=== PATIENT | male | born 1985 | race African-American/Black ===

== ENCOUNTER 2017-08-06 02:00 | Emergency (ER) | payer SELFPAY ==
[2017-08-06] MEDS ORDERED: CEPHALEXIN MONOHYDRATE 500 MG CAP PO ONE (04:05)
--- NOTE | 2017-08-06 06:14 | PD ---
HPI Chief Complaint: sore throat Time Seen by Provider: 06:07 Travel History International Travel<30 days: No Contact w/Intl Traveler<30days: No Traveled to known affect area: No History of Present Illness HPI 32-year-old black male presents to emergency department with a 2 day history of sore throat, subjective fever and general malaise. He states that he had called in sick to his day job on Monday. He needs a note to return to work or he will be fired. Patient states that symptoms are moderate. Worse with swallowing. No alleviating factors. He denies any nausea vomiting. No abdominal pain or diarrhea. [facility] Past Medical History Medical History: Denies Significant Hx Tetanus Vaccination: < 5 Years Past Surgical History Surgical History: No Previous Surgery Social History Alcohol Use: No Tobacco Use: No Review of Systems General / Constitutional: Positive: Fever, Chills Eyes: No: Visual changes HENT: Positive: Sore Throat, No: Headaches, Earache Cardiovascular: No: Chest Pain or Discomfort Respiratory: No: Shortness of Breath Gastrointestinal: No: Abdominal Pain Genitourinary: No: Dysuria Musculoskeletal: No: Pain Skin: No Rash Neurologic: No: Weakness Psychiatric: No: Depression Endocrine: No: Polydipsia Hematologic/Lymphatic: No: Easy Bruising Physical Exam Narrative GENERAL: Well-developed, well-nourished in no acute distress. Nontoxic appearing. HEAD: Normocephalic, atraumatic. EYES: Pupils equal round and reactive. Extraocular motions intact. No scleral icterus. No injection or drainage. ENT: TMs clear without erythema. The external auditory canals clear. Nose: clear . Posterior pharynx is mildly erythematous and moist. No tonsillar edema or exudate. Uvula midline. Airway patent. NECK: Trachea midline.Supple, nontender, moves head freely. No central bony tenderness or spasm. CARDIOVASCULAR: Regular rate and rhythm without murmurs, gallops, or rubs. RESPIRATORY: Clear to auscultation. Breath sounds equal bilaterally. No wheezes , rales, or rhonchi. GASTROINTESTINAL: Abdomen soft, non-tender, nondistended. No hepato-splenomegaly , or palpable masses. No guarding. EXTREMITIES: No clubbing, cyanosis, or edema. No joint tenderness, effusion, or edema noted. BACK: Nontender without deformity or crepitance. No flank tenderness. [facility] Medical Decision Making Medical Screen Exam Complete: Yes Emergency Medical Condition: Yes Medical Record Reviewed: Yes Differential Diagnosis MDM: High Differential diagnoses: Strep throat, viral pharyngitis, mono, peritonsillar abscess, retropharyngeal abscess, Pérez's angina Narrative Course Patient given amoxicillin 500 mg by mouth. This is acute pharyngitis Diagnosis Primary Impression: Acute pharyngitis Qualified Codes: J02.9 - Acute pharyngitis, unspecified Additional Instructions: Rest. Force fluids. Saltwater gargles. Tylenol and Advil. Chloraseptic [place] Cepastat lozenge. Amoxicillin. Follow-up with a primary care doctor in one week. Return to the ER if any problems. Med/Other Pt SpecificInfo: Prescription(s) given Disposition: 01 DISCHARGE HOME Condition: Nahum Garcia Aug 06, 2017 06:14
== END 2017-08-06 06:26 | disposition home or self-care (01) ==
LOC: NED 02:00 → NEPD 06:26
DX: J02.9 Acute pharyngitis, unspecified (principal); R53.81 Other malaise
CPT/HCPCS: 99283

== ENCOUNTER 2017-10-24 15:04 | Emergency (ER) | payer SELFPAY ==
[~2017-10-24] VITALS: Ht 177.8 cm; Wt 133.6 kg
[2017-10-24 15:05] VITALS: BP 179/91; PULSE 63; RESP 16; TEMP 98.5; O2SAT 100
[2017-10-24] MEDS ORDERED: KETOROLAC TROMETHAMINE 60 MG/2 ML (IM) VIAL IM ONE (17:00)
[2017-10-24] MEDS ORDERED: ORPHENADRINE INJ 60 MG/2 ML AMP IM ONE (17:00)
[2017-10-24] MEDS ORDERED: DICL75TA PO (17:22)
[2017-10-24] MEDS ORDERED: ROBA500T PO (17:22)
--- NOTE | 2017-10-24 17:27 | PD ---
HPI Chief Complaint: Back/ Neck Pain or Injury Time Seen by Provider: 16:51 Travel History International Travel<30 days: No Contact w/Intl Traveler<30days: No Traveled to known affect area: No History of Present Illness HPI 32-year-old male that presents to the ED for evaluation of lower back pain that gets worse with bending. Per patient injury started on after he did heavy lifting helping move some furniture. Per patient the pain goes more significant on Monday and Monday. He has continued to work at his normal job where he does do a lot of heavy lifting and bending and she believes this is making it worse. Per patient the pain more severe today which is what prompted evaluation. Per patient he had to call out of work to come here. He denies any falls or injuries other than the heavy lifting that he did on . He states having some back problems in the past. No allergies to medication. No recent surgeries on the back. Has been taking OTC meds with minimal relief. Per patient pain is 8 out of 10. Gets worse with bending and movement. Has no allergies to medication. Denies any chest or shortness of breath. No head injury. No blurry vision or double vision. No bowel movement or urinary issues. No saddle anesthesia like symptoms. PFSH Social History Alcohol Use: No Tobacco Use: No Allergies-Medications (Allergen,Severity, Reaction): Coded Allergies: No Known Allergies (Unverified , 08/06/17) Review of Systems Except as stated in HPI: all other systems reviewed are Neg Physical Exam Narrative GENERAL: SKIN: Warm and dry. HEAD: Atraumatic. Normocephalic. EYES: Pupils equal and round. No scleral icterus. No injection or drainage. ENT: No nasal bleeding or discharge. Mucous membranes pink and moist. Tongue is midline. No uvula deviation. NECK: Trachea midline. No JVD. CARDIOVASCULAR: Regular rate and rhythm. RESPIRATORY: No accessory muscle use. Clear to auscultation. Breath sounds equal bilaterally. GASTROINTESTINAL: Abdomen soft, non-tender, nondistended. Hepatic and splenic margins not palpable. MUSCULOSKELETAL: Extremities without clubbing, cyanosis, or edema. No obvious deformities. Full range of motion of the upper and lower extremities bilaterally. Patient does have reproducible pain on the musculature on the left and right lumbar area. Some pain on the lumbar spine but no obvious spinal deformity. Straight leg test negative bilaterally. Pain with flexion of the lumbar spine. No obvious thoracic or cervical spine tenderness to palpation. 2+ pulses bilaterally. Neurovascular intact. NEUROLOGICAL: Awake and alert. No obvious cranial nerve deficits. Motor grossly within normal limits. Five out of 5 muscle strength in the arms and legs. Normal speech. PSYCHIATRIC: Appropriate mood and affect; insight and judgment normal. Data Data Last Documented VS Vital Signs Date Time Temp Pulse Resp B/P (MAP) Pulse Ox O2 Delivery O2 Flow Rate FiO2 10/24/17 15:05 98.5 63 16 179/91 (120) 100 Room Air Orders Orders Spine, Lumbar Comp W/Obliq (10/24/17 ) Ketorolac Inj (Toradol Inj) (10/24/17 17:00) Orphenadrine Inj (Norflex Inj) (10/24/17 17:00) MDM Medical Decision Making Medical Screen Exam Complete: Yes Emergency Medical Condition: Yes Medical Record Reviewed: Yes Interpretation(s) X-ray the lumbar spine show chronic changes but no sign of acute disease. Differential Diagnosis Herniated disc versus muscle strain versus muscle spasm versus sciatica Narrative Course 32-year-old male that presents to the ED for evaluation of lower back pain. Patient was properly examined and was found to have signs and symptoms consistent appears to be muscle strain of the lower back. X-ray was ordered for his any bony injury secondary to his heavy lifting and continues pain. X- ray was negative for acute disease. Patient was reassured. Patient will be given shot of Toradol and Norflex. Given prescription for diclofenac sodium and Robaxin to use as needed. Given note for work. See ED worsening symptoms. Ice or warm compresses. Follow with PCP. Diagnosis Primary Impression: Lumbar strain Qualified Codes: S39.012A - Strain of muscle, fascia and tendon of lower back , initial encounter Patient Instructions: General Instructions Departure Forms: Tests/Procedures, Work Release Special Instructions: Please outpatient to do light duty if possible. Patient suffered lumbar strain to requires rest. He is not to do any heavy lifting more than 5 pounds, bending or pushing until better. Preferably until 11/01/17. Additional Instructions: Take medications as prescribed. Follow-up with PCP. See ED for any worsening symptoms. Do not drink or drive while taking pain medication. Apply ice or heat as needed for pain Med/Other Pt SpecificInfo: Prescription(s) given Scripts Methocarbamol (Robaxin) 500 Mg Tab 500 MG PO QID for Muscle Spasm, #14 TAB 0 Refills Prov: Deena Santillan DO 10/24/[address] (Diclofenac Sodium DR) 75 Mg Tabdr 75 MG PO BID Y for PAIN SCALE 1 TO 10, #20 TAB 0 Refills Prov: Deena Santillan DO 10/24/17 Disposition: 01 DISCHARGE HOME Condition: Stable Darius Ramirez Oct 24, 2017 17:27
--- NOTE | 2017-10-24 18:05 | RADRPT ---
EXAM DATE/TIME: 10/24/2017 17:17 [place] COMPARISON: No previous studies available for comparison. INDICATIONS : Lumbar spine pain. MEDICAL HISTORY : None. SURGICAL HISTORY : None. ENCOUNTER: Initial ACUITY: 4 - 6 days PAIN SCORE: 9/10 LOCATION: Bilateral lumbar spine FINDINGS: There are five non-rib bearing vertebral bodies. The vertebral bodies are in normal alignment withou t evidence of subluxation or scoliosis. The disc spaces are maintained. The posterior elements are intact without evidence of spondylolysis. The pedicles are intact. Bony mineralization is normal. No fracture is identified. CONCLUSION: No acute disease. Diego Ritchie MD on October 24, 2017 at 18:02 Board Certified Radiologist. This report was verified electronically.
== END 2017-10-24 18:05 | disposition home or self-care (01) ==
LOC: NEPK 15:04
DX: S39.012A Strain of muscle, fascia and tendon of lower back, initial encounter (principal); X50.9XXA Other and unspecified overexertion or strenuous movements or postures, initial encounter; Y93.89 Activity, other specified
CPT/HCPCS: 72110; 96372; 99283; J1885; J2360

== ENCOUNTER 2018-02-13 09:48 | Emergency (ER) | payer SELFPAY ==
[~2018-02-13] VITALS: Ht 180.3 cm; Wt 131.0 kg
[~2018-02-13 09:48] MED LIST: DICL75TA PO; ROBA500T PO
[2018-02-13 09:51] VITALS: BP 154/80; PULSE 65; RESP 16; TEMP 98; O2SAT 98
--- NOTE | 2018-02-13 10:13 | PD ---
HPI Chief Complaint: Abdominal Pain Time Seen by Provider: 10:12 Travel History International Travel<30 days: No Contact w/Intl Traveler<30days: No Traveled to known affect area: No History of Present Illness HPI 32-year-old male came to the emergency room with history of epigastric pain, nausea, vomiting and diarrhea for past 3 days. Patient says it is not getting better and hence he is here. He is not had these kind of symptoms in the past. Pain is localized in the epigastric area without any radiation. No aggravating or relieving factors identified. Patient says he usually does not drink alcohol but about 3 days ago he did drink some wine coolers after which the pain started. No blood in the vomit. Currently he is in pain and some nausea. Vital signs otherwise stable. Patient has not taken any medications at home to relieve his symptoms. He otherwise claims to be a healthy person. Patient says he occasionally takes a medication for his joint pain that was prescribed from the emergency room in the past. It happens to be diclofenac. [facility] Past Medical History Narrative Medical List of his past medical, surgical, social and family history reviewed from the nursing note. Hypertension: Yes Past Surgical History Other Surgery: Yes (L NERVE REMOVAL FROM EYELID) Social History Alcohol Use: No Tobacco Use: No Substance Use: Yes Allergies-Medications (Allergen,Severity, Reaction): Coded Allergies: No Known Allergies (Unverified , 02/13/18) Comments No known drug allergies. Reported Meds & Prescriptions Reported Meds & Active Scripts Active Zofran Odt (Ondansetron Odt) 4 Mg Tab 4 Mg SL Q6HR PRN Protonix (Pantoprazole Sodium) 40 Mg Tab 40 Mg PO DAILY Robaxin (Methocarbamol) 500 Mg Tab 500 Mg PO QID Diclofenac Sodium DR (Diclofenac Sodium) 75 Mg Tabdr 75 Mg PO BID PRN Narrative Medication List of his home medications reviewed from the nursing note. Review of Systems Except as stated in HPI: all other systems reviewed are Neg Gastrointestinal: Positive: Nausea, Vomiting, Diarrhea, Abdominal Pain Physical Exam Narrative GENERAL: Awake, alert, obese, moderate distress SKIN: Focused skin assessment warm/dry. HEAD: Atraumatic. Normocephalic. EYES: Pupils equal and round. No scleral icterus. No injection or drainage. ENT: No nasal bleeding or discharge. Mucous membranes pink and moist. NECK: Trachea midline. No JVD. CARDIOVASCULAR: Regular rate and rhythm. No murmur appreciated. RESPIRATORY: No accessory muscle use. Clear to auscultation. Breath sounds equal bilaterally. GASTROINTESTINAL: Abdomen soft, epigastric tenderness, nondistended. Hepatic and splenic margins not palpable. MUSCULOSKELETAL: No obvious deformities. No clubbing. No cyanosis. No edema. NEUROLOGICAL: Awake and alert. No obvious cranial nerve deficits. Motor grossly within normal limits. Normal speech. PSYCHIATRIC: Appropriate mood and affect; insight and judgment normal. Data Data Last Documented VS Vital Signs Date Time Temp Pulse Resp B/P (MAP) Pulse Ox O2 Delivery O2 Flow Rate FiO2 02/13/18 10:35 98 Room Air 02/13/18 09:51 98.0 65 16 154/80 (104) Orders Orders Complete Blood Count With Diff (02/13/18 10:16) Comprehensive Metabolic Panel (02/13/18 10:16) Lactic Acid (02/13/18 10:16) Iv Access Insert/Monitor (02/13/18 10:16) Ecg Monitoring (02/13/18 10:16) Oximetry (02/13/18 10:16) Pantoprazole Inj (Protonix Inj) (02/13/18 10:30) Sodium Chloride 0.9% Flush (Ns Flush) (02/13/18 10:30) Sodium Chlor 0.9% 1000 Ml Inj (Ns 1000 M (02/13/18 10:30) Ed Discharge Order (02/13/18 11:11) Labs Laboratory Tests Test 02/13/18 10:30 White Blood Count 6.8 TH/MM3 Red Blood Count 5.08 MIL/MM3 Hemoglobin 14.6 GM/DL Hematocrit 43.0 % Mean Corpuscular Volume 84.5 FL Mean Corpuscular Hemoglobin 28.7 PG Mean Corpuscular Hemoglobin Concent 34.0 % Red Cell Distribution Width 13.1 % Platelet Count 162 TH/MM3 Mean Platelet Volume 9.6 FL Neutrophils (%) (Auto) 68.5 % Lymphocytes (%) (Auto) 21.3 % Monocytes (%) (Auto) 6.5 % Eosinophils (%) (Auto) 2.7 % Basophils (%) (Auto) 1.0 % Neutrophils # (Auto) 4.6 TH/MM3 Lymphocytes # (Auto) 1.4 TH/MM3 Monocytes # (Auto) 0.4 TH/MM3 Eosinophils # (Auto) 0.2 TH/MM3 Basophils # (Auto) 0.1 TH/MM3 CBC Comment DIFF FINAL Differential Comment Blood Urea Nitrogen 10 MG/DL Creatinine 0.98 MG/DL Random Glucose 86 MG/DL Total Protein 6.9 GM/DL Albumin 3.3 GM/DL Calcium Level 8.2 MG/DL Alkaline Phosphatase 56 U/L Aspartate Amino Transf (AST/SGOT) 16 U/L Alanine Aminotransferase (ALT/SGPT) 21 U/L Total Bilirubin 0.5 MG/DL Sodium Level 140 MEQ/L Potassium Level 3.5 MEQ/L Chloride Level 106 MEQ/L Carbon Dioxide Level 27.2 MEQ/L Anion Gap 7 MEQ/L Estimat Glomerular Filtration Rate 109 ML/MIN Lactic Acid Level 0.8 mmol/L [facility] Medical Decision Making Medical Screen Exam Complete: Yes Emergency Medical Condition: Yes Medical Record Reviewed: Yes Differential Diagnosis Acute pancreatitis, acute gastritis Narrative Course 11:05 AM patient is getting IV fluid bolus and IV Protonix. Awaiting for blood test results. CBCs back which is within normal limit but chemistry and lipase is pending. 11:11 AM chemistry and lipase is back which is within normal limits. I will discharge him home Procedures EKG Prior to Arrival: No Diagnosis Primary Impression: Acute gastritis Qualified Codes: K29.00 - Acute gastritis without bleeding Referrals: [facility] Additional Instructions: Do not drink alcohol. Do not eat spicy food or citrus food like lemonade, [place] , orange juice, tomatoes or strawberries since they will increase the acid content in your stomach and make his symptoms worse. Take the medication as per the prescription direction. Do not take the joint pain medication until your symptoms subside. Return to the ER if the condition worsens any other new concerns. Drink lots of fluid to stay hydrated. Med/Other Pt SpecificInfo: Prescription(s) given Scripts Ondansetron Odt (Zofran Odt) 4 Mg Tab 4 MG SL Q6HR Y for Nausea/Vomiting, #15 TAB 0 Refills Prov: Moris Golden MD 02/13/18 Pantoprazole (Protonix) 40 Mg Tab 40 MG PO DAILY for Reflux, #30 TAB 0 Refills Prov: Moris Golden MD 02/13/18 Disposition: 01 DISCHARGE HOME Condition: Stable [place],Shravanti R. MD February 13, 2018 10:13
[2018-02-13] MEDS ORDERED: PANTOPRAZOLE SODIUM 40 MG VIAL IVP ONE (10:30)
[2018-02-13] MEDS ORDERED: SODIUM CHLOR 0.9% 1000 ML INJ 1,000 ML IV ONE (10:30)
[2018-02-13] MEDS ORDERED: SODIUM CHLORIDE 0.9% FLUSH 10 ML FLUSH IV FLUSH PRN (10:30)
[2018-02-13 10:35] VITALS: O2SAT 98
[2018-02-13 10:49] LABS: AUTOMATED NEUTROPHIL # 4.6 TH/MM3 (1.8-7.7); BASOPHIL # 0.1 TH/MM3 (0-0.2); EOSINOPHIL # 0.2 TH/MM3 (0-0.4); EOSINOPHIL % 2.7 % (0.0-4.0); HEMOGLOBIN 14.6 GM/DL (13.0-17.0); LYMPH % 21.3 % (9.0-44.0); LYMPHOCYTE # 1.4 TH/MM3 (1.0-4.8); MEAN CELL VOLUME 84.5 FL (80.0-100.0); MEAN CORPUSCULAR HEMOGLOBIN 28.7 PG (27.0-34.0); MEAN PLATELET VOLUME 9.6 FL (7.0-11.0); MONO % 6.5 % (0.0-8.0); MONOCYTE # 0.4 TH/MM3 (0-0.9); NEUT % 68.5 % (16.0-70.0); PLATELET COUNT 162 TH/MM3 (150-450); RED BLOOD COUNT 5.08 MIL/MM3 (4.50-5.90); RED CELL DISTRIBUTION WIDTH 13.1 % (11.6-17.2); WHITE BLOOD COUNT 6.8 TH/MM3 (4.0-11.0)
[2018-02-13 11:07] LABS: ALBUMIN 3.3 GM/DL (3.4-5.0); ALT (GPT) 21 U/L (12-78); AST (GOT) 16 U/L (15-37); BICARBONATE 27.2 MEQ/L (21.0-32.0); BLOOD UREA NITROGEN 10 MG/DL (7-18); CALCIUM 8.2 MG/DL (8.5-10.1); CHLORIDE 106 MEQ/L (98-107); CREATININE 0.98 MG/DL (0.60-1.30); GLOMERULAR FILTRATION RATE 109 ML/MIN (>89); GLUCOSE,RANDOM 86 MG/DL (74-106); SODIUM (NA) 140 MEQ/L (136-145)
[2018-02-13 11:10] LABS: ALKALINE PHOSPHATASE 56 U/L (45-117); TOTAL BILIRUBIN ADULT 0.5 MG/DL (0.2-1.0); TOTAL PROTEIN 6.9 GM/DL (6.4-8.2)
[2018-02-13] MEDS ORDERED: PROT40TA PO (11:14)
[2018-02-13] MEDS ORDERED: ZOFR4TAB3 SL (11:14)
== END 2018-02-13 11:30 | disposition home or self-care (01) ==
LOC: NEPD 09:48
DX: K29.00 Acute gastritis without bleeding (principal)
CPT/HCPCS: 80053; 83605; 85025; 96374; 99284; C9113; J7030

== ENCOUNTER 2018-03-05 09:00 | Emergency (ER) | payer SELFPAY ==
[~2018-03-05] VITALS: Ht 180.3 cm; Wt 140.0 kg
[~2018-03-05 09:00] MED LIST changes: +PROT40TA PO; +ZOFR4TAB3 SL
[2018-03-05 09:10] VITALS: BP 152/84; PULSE 70; RESP 16; TEMP 98.3; O2SAT 96
[2018-03-05 09:46] LABS: AUTOMATED NEUTROPHIL # 4.4 TH/MM3 (1.8-7.7); BASOPHIL # 0.1 TH/MM3 (0-0.2); BASOPHIL % 0.9 % (0.0-2.0); EOSINOPHIL # 0.2 TH/MM3 (0-0.4); EOSINOPHIL % 3.4 % (0.0-4.0); HEMATOCRIT 42.2 % (39.0-51.0); HEMOGLOBIN 14.8 GM/DL (13.0-17.0); LYMPH % 22.2 % (9.0-44.0); LYMPHOCYTE # 1.4 TH/MM3 (1.0-4.8); MEAN CELL VOLUME 83.8 FL (80.0-100.0); MEAN CORPUSCULAR HEMOGLOBIN 29.3 PG (27.0-34.0); MEAN PLATELET VOLUME 9.6 FL (7.0-11.0); MONO % 5.7 % (0.0-8.0); MONOCYTE # 0.4 TH/MM3 (0-0.9); NEUT % 67.8 % (16.0-70.0); PLATELET COUNT 162 TH/MM3 (150-450); RED BLOOD COUNT 5.04 MIL/MM3 (4.50-5.90); RED CELL DISTRIBUTION WIDTH 13.5 % (11.6-17.2); WHITE BLOOD COUNT 6.5 TH/MM3 (4.0-11.0)
[2018-03-05 10:06] LABS: ALBUMIN 3.6 GM/DL (3.4-5.0); AST (GOT) 15 U/L (15-37); BICARBONATE 23.7 MEQ/L (21.0-32.0); BLOOD UREA NITROGEN 10 MG/DL (7-18); CALCIUM 8.5 MG/DL (8.5-10.1); CHLORIDE 106 MEQ/L (98-107); CREATININE 0.97 MG/DL (0.60-1.30); GLOMERULAR FILTRATION RATE 110 ML/MIN (>89); GLUCOSE,RANDOM 83 MG/DL (74-106); SODIUM (NA) 139 MEQ/L (136-145)
[2018-03-05 10:07] LABS: ALT (GPT) 24 U/L (12-78)
[2018-03-05 10:10] LABS: ALKALINE PHOSPHATASE 59 U/L (45-117); TOTAL BILIRUBIN ADULT 0.6 MG/DL (0.2-1.0); TOTAL PROTEIN 7.2 GM/DL (6.4-8.2)
--- NOTE | 2018-03-05 10:20 | PD ---
HPI . Vomiting Chief Complaint: GI Complaint Time Seen by Provider: 09:50 Travel History International Travel<30 days: No Contact w/Intl Traveler<30days: No Traveled to known affect area: No History of Present Illness HPI This patient presents with a chief complaint of vomiting. Onset this morning. He reports about 2 episodes of vomiting and maybe 2 episodes of loose stools. He states that the severity of his symptoms is 8/10. No modifying factors. No associated symptoms. PFSH Past Medical History Medical History: Denies Significant Hx Hypertension: Yes Tetanus Vaccination: > 5 Years Influenza Vaccination: No Past Surgical History Other Surgery: Yes (L NERVE REMOVAL FROM EYELID) Social History Alcohol Use: Yes (OCC) Tobacco Use: Yes (1 PPD) Substance Use: Yes Allergies-Medications (Allergen,Severity, Reaction): Coded Allergies: No Known Allergies (Unverified , 03/05/18) Reported Meds & Prescriptions Reported Meds & Active Scripts Active No Active Prescriptions or Reported Medications Review of Systems Except as stated in HPI: all other systems reviewed are Neg Physical Exam Narrative GENERAL: Patient is lying on the stretcher smiling in no distress. He is requesting that his IV be removed. SKIN: warm/dry. HEAD: Normocephalic. Atraumatic. EYES: Pupils equal and round. Extraocular movements are intact. ENT: Mucous membranes pink and moist. NECK: Supple. Full range of motion without pain.. CARDIOVASCULAR: Regular rate and rhythm. Heart sounds are normal. RESPIRATORY: No accessory muscle use. Clear to auscultation. Breath sounds equal bilaterally. GASTROINTESTINAL: Abdomen soft. Nontender. Bowel sounds present. Nondistended. MUSCULOSKELETAL: No obvious deformities. Normal muscle tone. NEUROLOGICAL: Awake and alert. No obvious cranial nerve deficits. Motor grossly within normal limits. Normal speech. PSYCHIATRIC: Appropriate mood and affect; insight and judgment normal. Data Data Last Documented VS Vital Signs Date Time Temp Pulse Resp B/P (MAP) Pulse Ox O2 Delivery O2 Flow Rate FiO2 03/05/18 09:16 18 03/05/18 09:10 98.3 70 152/84 (106) 96 Orders Orders Complete Blood Count With Diff (03/05/18 09:25) Comprehensive Metabolic Panel (03/05/18 09:25) Urinalysis - C+S If Indicated (03/05/18 09:25) Iv Access Insert/Monitor (03/05/18 09:25) Oxygen Administration (03/05/18 09:25) Oximetry (03/05/18 09:25) Lipase (03/05/18 09:25) Cath For Specimen (03/05/18 10:17) Ed Discharge Order (03/05/18 11:44) Labs Laboratory Tests Test 03/05/18 09:30 White Blood Count 6.5 TH/MM3 Red Blood Count 5.04 MIL/MM3 Hemoglobin 14.8 GM/DL Hematocrit 42.2 % Mean Corpuscular Volume 83.8 FL Mean Corpuscular Hemoglobin 29.3 PG Mean Corpuscular Hemoglobin Concent 35.0 % Red Cell Distribution Width 13.5 % Platelet Count 162 TH/MM3 Mean Platelet Volume 9.6 FL Neutrophils (%) (Auto) 67.8 % Lymphocytes (%) (Auto) 22.2 % Monocytes (%) (Auto) 5.7 % Eosinophils (%) (Auto) 3.4 % Basophils (%) (Auto) 0.9 % Neutrophils # (Auto) 4.4 TH/MM3 Lymphocytes # (Auto) 1.4 TH/MM3 Monocytes # (Auto) 0.4 TH/MM3 Eosinophils # (Auto) 0.2 TH/MM3 Basophils # (Auto) 0.1 TH/MM3 CBC Comment DIFF FINAL Differential Comment Blood Urea Nitrogen 10 MG/DL Creatinine 0.97 MG/DL Random Glucose 83 MG/DL Total Protein 7.2 GM/DL Albumin 3.6 GM/DL Calcium Level 8.5 MG/DL Alkaline Phosphatase 59 U/L Aspartate Amino Transf (AST/SGOT) 15 U/L Alanine Aminotransferase (ALT/SGPT) 24 U/L Total Bilirubin 0.6 MG/DL Sodium Level 139 MEQ/L Potassium Level 3.8 MEQ/L Chloride Level 106 MEQ/L Carbon Dioxide Level 23.7 MEQ/L Anion Gap 9 MEQ/L Estimat Glomerular Filtration Rate 110 ML/MIN Lipase 292 U/L MDM Medical Decision Making Medical Screen Exam Complete: Yes Emergency Medical Condition: Yes Differential Diagnosis Differential diagnosis includes but is not limited to viral gastritis, food poisoning, pancreatitis, pneumonia, hepatitis, acute coronary syndrome, Narrative Course This patient presents with the chief complaint of nausea, vomiting and diarrhea. Physical exam is unremarkable. CBC & BMP Diagram 03/05/18 09:30 Total Protein 7.2, Albumin 3.6, Calcium Level 8.5, Alkaline Phosphatase 59, Aspartate Amino Transf (AST/SGOT) 15, Alanine Aminotransferase (ALT/SGPT) 24, Total Bilirubin 0.6 He never produced a urine. He does not have any symptoms of urinary tract infection. He will be discharged home. He is very anxious to leave. Diagnosis Primary Impression: Vomiting Qualified Codes: R11.2 - Nausea with vomiting, unspecified Patient Instructions: Gastroenteritis (DC), General Instructions Scripts No Active Prescriptions or Reported Meds Disposition: 01 DISCHARGE HOME Condition: Stable Charu Randall MD Mar 05, 2018 10:20
== END 2018-03-05 12:08 | disposition home or self-care (01) ==
LOC: NEPC 09:00
DX: R11.2 Nausea with vomiting, unspecified (principal); R19.7 Diarrhea, unspecified; I10 Essential (primary) hypertension; F17.210 Nicotine dependence, cigarettes, uncomplicated
CPT/HCPCS: 80053; 83690; 85025; 99283